=== PATIENT | female | born 1975 | race Caucasian/White ===

== ENCOUNTER 2021-07-03 10:25 | Emergency (ER) | payer BC, SELFPAY ==
[~2021-07-03] VITALS: Ht 162.6 cm; Wt 66.7 kg
[2021-07-03 10:40] VITALS: BP_SYST 113
--- NOTE | 2021-07-03 10:40 | NUR ---
Pt to tent for evaluation.
--- NOTE | 2021-07-03 10:40 | NUR ---
Pt AAO and ambulatory reporting worsening Covid symptoms since Tuesday. Pt reports that her Covid test came back positive 4 days ago. Pt reports excessive coughing, SOB, and body aches. Pt rates pain 10/10 on pain scale. Pt reports only prior history of hernia, thyroid, and cosmetic repair.
--- NOTE | 2021-07-03 10:50 | NUR ---
Pt to bed 8 for evaluation. Report given to PABLO Henriquez who will assume care.
[2021-07-03 11:14] LABS: BASOPHILS % (AUTO) 0.5 % (0.0-2.0); EOSINOPHILS % (AUTO) 0.1 % (0.0-4.0); HEMATOCRIT 41.1 % (36-48); LYMPHOCYTES # (AUTO) 1.4 K/uL (1.0-5.5); LYMPHOCYTES % (AUTO) 13.7 % (20.5-51.5); MEAN CORPUSCULAR HEMOGLOBIN 33 pg (27-31); MEAN CORPUSCULAR HGB CONC 34 % (32-36); MEAN CORPUSCULAR VOLUME 97 fL (79.0-98.0); MONOCYTES # (AUTO) 0.3 K/uL (0.0-1.0); NEUTROPHILS # (AUTO) 8.3 K/uL (1.8-7.7); NEUTROPHILS % (AUTO) 82.7 % (40.0-70.0); PLATELET COUNT (AUTO) 301 K/uL (130-430); RED BLOOD CELL COUNT(AUTO) 4.23 MIL/uL (4.2-6.2); RED CELL DISTRIBUTION WIDTH 12.1 % (9.0-15.0); WHITE BLOOD COUNT (AUTO) 10.1 K/uL (4.8-10.8)
--- NOTE | 2021-07-03 11:16 | NUR ---
REPORT GIVEN TO MICHAEL SHAH, TRANSFERRED CARE.
--- NOTE | 2021-07-03 11:30 | NUR ---
[place] of care received, pt A&Ox4, pt placed on NC 2 L since O2 92% roomair, pt afebrile, HR 92, will cont to monitor.
[2021-07-03 11:38] LABS: ANION GAP 10 (5-15); CALCIUM 8.9 mg/dL (8.4-11.0); CHLORIDE 99 mmol/L (98-107); CREATININE 0.81 mg/dL (0.55-1.30); GLUCOSE 119 mg/dL (70-99); POTASSIUM 4.3 mmol/L (3.5-5.1); SODIUM SERUM 136 mmol/L (136-145); UREA NITROGEN, BLOOD 6 mg/dL (8-21)
[2021-07-03 11:47] LABS: GFR AFRICAN AMERICAN 98 mL/min (>90)
[2021-07-03 11:54] LABS: ALANINE AMINOTRANSFERASE 36 U/L (12-78); ALBUMIN 3.6 g/dL (3.4-4.8); ASPARTATE AMINOTRANSFERASE 40 U/L (10-37); TOTAL BILIRUBIN 0.4 mg/dL (0.0-1.0)
[2021-07-03 11:56] LABS: HCG,QUANTITATIVE 2 mIU/ML (0-6)
--- NOTE | 2021-07-03 12:05 | NUR ---
Upon entry, patient laying down with eyes closed. No apparent distress. VSS. Put on 2L nasal canula.
--- NOTE | 2021-07-03 12:55 | NUR ---
Pt O2 is 91 to 92 % room air during ambulation, MD notified
[2021-07-03] MEDS ORDERED: CASIRIVIMAB 600 MG, IMDEVIMAB 600 MG in NS 250 ML IV ONE (13:30)
--- NOTE | 2021-07-03 14:51 | NUR ---
Regeneron infusion started at this time , pt VSS, respirations even and unlabored, cap refill <3.
[2021-07-03] MEDS ORDERED: BENZ-16 PO (15:05)
[2021-07-03] MEDS ORDERED: ALBMDI INH (15:05)
[2021-07-03] MEDS ORDERED: PRED20TA PO (16:54)
--- NOTE | 2021-07-03 16:59 | NUR ---
Pt c/o persistent cough and SOB prior discharge, O2 92 % room air, Dr Cardona notified, per Dr Cardona prednisone 60 mg PO will be given, pt will be monitor for few hours prior discharge. Pt's states will go to pharmacy to get Inhalor Rx, will cont to monitor.
[2021-07-03] MEDS ORDERED: prednisoLONE 15 MG/5 ML UDC PO ONE (17:00)
--- NOTE | 2021-07-03 17:15 | NUR ---
Pt given prednisone as ordered,well tolerated.
--- NOTE | 2021-07-03 17:50 | NUR ---
Pt states coughing improving at this time, O2 93 %room air, at bedside, notified.
--- NOTE | 2021-07-03 17:52 | NUR ---
Patient given written and verbal discharge instructions and verbalizes understanding. ER MD discussed with patient the results and treatment provided. Patient in stable condition. ID arm band removed. IV catheter removed intact and dressing applied, no active bleeding. Rx of Albuterol and Tessalon pearls given. Patient educated on pain management and to follow up with PMD. Pain Scale 0/10. Opportunity for questions provided and answered. Medication side effect fact sheet provided.
[2021-07-03 17:53] VITALS: BP_SYST 111
== END 2021-07-03 17:52 | disposition home or self-care (01) ==
LOC: SED 10:25
DX: U07.1 COVID-19 (principal); Z79.899 Other long term (current) drug therapy
CPT/HCPCS: 36415; 71045; 80053; 84484; 84702; 85025; 86140; 87426; 93005; 99285; J7050; M0243; Q0243